=== PATIENT | female | born 1985 | race African-American/Black ===

== ENCOUNTER 2020-03-16 18:40 | Emergency (ER) | payer OTHER ==
[~2020-03-16] VITALS: Ht 172.7 cm; Wt 78.0 kg
[~2020-03-16 18:40] MED LIST: IBUPROFEN 200200 M1 PO; NORCO 5-325 TA1 EACH PO
[2020-03-16] MEDS ORDERED: HUMIRA10 MG/0.1 SUBQ (18:48)
[2020-03-16 19:44] LABS: HEMATOCRIT 31.3 % (37.0-47.0)
[2020-03-16 19:45] LABS: ABSOLUTE NEUTROPHILS 11.3 thou/uL (1.4-8.2); ANION GAP 8 mmol/L (7-16); BASOPHILS 0.6 % (0.0-2.0); BUN 6 mg/dL (7-18); CALCIUM 8.4 mg/dL (8.5-10.1); CHLORIDE 101 mmol/L (98-107); CO2 26 mmol/L (21-32); CREATININE 0.8 mg/dL (0.6-1.0); EOSINOPHILS 0.3 % (0.0-3.0); GLUCOSE 96 mg/dL (74-106); HEMOGLOBIN 10.1 gm/dL (12.0-15.0); LYMPHOCYTES 12.5 % (24.0-44.0); MCH 23.5 pg (26.0-34.0); MCHC 32.3 g/dL (28.0-37.0); MCV 72.9 fL (80.0-100.0); MONOCYTES 6.8 % (1.0-8.0); PLATELET COUNT 330 thou/uL (150-400); POLYS 79.8 % (36.0-66.0); POTASSIUM 3.3 mmol/L (3.5-5.1); RDW 17.2 % (10.5-14.5); SODIUM 135 mmol/L (136-145); WBC 14.1 thou/uL (4.0-11.0)
[2020-03-16 19:53] LABS: TROPONIN-I <0.06 ng/mL (<0.06)
[2020-03-16 20:29] VITALS: BP 130/67
[2020-03-16 21:04] LABS: MICROCYTES 1+
[2020-03-16 21:05] LABS: ANISOCYTOSIS 1+; HYPOCHROMASIA SLIGHT; POLYCHROMASIA OCCASIONAL
--- NOTE | 2020-03-17 07:48 | EKG ---
[facility] [place] [address] ELECTROCARDIOGRAM REPORT Name: SALIMA THEODORE Room #: DEP [facility]#: [id number] Admission: 03/16/20 Attend Phys: Discharge: 03/16/20 Date of : 81 Report #: [id number] THIS REPORT FOR: cc: FAM - No family physician/PCP FAM - No family physician/PCP Curtis Epps MD [facility] THIS REPORT FOR: //name// [facility] ED Test Date: 2020-03-16 Test Time: 19:16:40 Pat Name: SALIMA THEODORE Department: Room: Gender: F Plant Maintenance Engineer: DANIEL : 1985 Requested By: Ray Haddad Order Number: [id number] MD: Curtis Epps Measurements Intervals Hansen Rate: 65 P: 8 GA: 146 QRS: 11 QRSD: 92 T: 19 QT: 395 QTc: 411 Interpretive Statements Sinus rhythm Anteroseptal infarct, old Baseline wander in lead(s) I,II,aVR,aVF No previous ECG available for comparison Electronically Signed On 03-17-2020 7:47:53 CDT by Curtis Epps [email or web address] <ELECTRONICALLY SIGNED> By: Curtis Epps MD, [facility] 03/17/20 0747 15 15 Curtis Epps MD, [facility] /EPI
== END 2020-03-16 20:37 | disposition home or self-care (01) ==
LOC: ER 18:40
PROVIDERS: Emergency Medicine
DX: R00.2 Palpitations (principal); E87.6 Hypokalemia; Z79.899 Other long term (current) drug therapy; Z87.891 Personal history of nicotine dependence

== ENCOUNTER 2020-05-24 06:50 | Emergency (ER) | payer OTHER ==
[~2020-05-24] VITALS: Ht 172.7 cm; Wt 77.1 kg
[~2020-05-24 06:50] MED LIST changes: +HUMIRA10 MG/0.1 SUBQ; +LORCET 5-325 M1 EACH PO
[2020-05-24 08:53] VITALS: BP 112/65
== END 2020-05-24 08:55 | disposition home or self-care (01) ==
LOC: ER 06:50
DX: L73.2 Hidradenitis suppurativa (principal); Z90.49 Acquired absence of other specified parts of digestive tract; Z79.899 Other long term (current) drug therapy; Z88.8 Allergy status to other drugs, medicaments and biological substances

== ENCOUNTER 2021-01-12 14:52 | Observation (INO) | payer OTHER ==
[~2021-01-12] VITALS: Ht 172.7 cm; Wt 69.5 kg
[2021-01-12 15:16] VITALS: BP 119/73
[2021-01-12] MEDS ORDERED: AZULFIDINE500 MG PO (15:24)
[2021-01-12] MEDS ORDERED: FLAGYL500 M1 PO (15:25)
[2021-01-12] MEDS ORDERED: BACTRIM 400-801 EACH PO (15:25)
[2021-01-12 15:33] LABS: HEMATOCRIT 30.6 % (37.0-47.0); HEMOGLOBIN 9.6 gm/dL (12.0-15.0); MCH 21.9 pg (26.0-34.0); MCHC 31.3 g/dL (28.0-37.0); MCV 69.8 fL (80.0-100.0); PLATELET COUNT 559 thou/uL (150-400); RBC 4.38 mil/uL (4.20-5.00); RDW 18.8 % (10.5-14.5); WBC 22.9 thou/uL (4.0-11.0)
[2021-01-12 15:42] LABS: CALCIUM 9.1 mg/dL (8.5-10.1); CREATININE 0.9 mg/dL (0.6-1.0); POTASSIUM 3.6 mmol/L (3.5-5.1)
[2021-01-12 16:09] LABS: ANISOCYTOSIS 2+; POLYCHROMASIA 1+
[2021-01-12 16:10] LABS: HYPOCHROMASIA 2+; MICROCYTES 2+
[2021-01-12 16:13] LABS: ALBUMIN 2.6 g/dL (3.4-5.0); DIRECT BILIRUBIN < 0.1 mg/dL (<0.1-0.2); LIPASE 62 U/L (73-393); SGOT 23 U/L (15-37); SGPT 38 U/L (14-59); TOTAL BILIRUBIN 0.2 mg/dL (0.2-1.0); TOTAL PROTEIN 9.4 g/dL (6.4-8.2)
[2021-01-12 16:36] LABS: URINE BILIRUBIN NEGATIVE (Negative); URINE BLOOD NEGATIVE (Negative); URINE CLARITY CLEAR; URINE COLOR YELLOW; URINE GLUCOSE-RANDOM* NEGATIVE (Negative); URINE KETONES NEGATIVE (Negative); URINE LEUKOCYTES-REFLEX TRACE (Negative); URINE NITRITE-REFLEX NEGATIVE (Negative); URINE PROTEIN (DIPSTICK) NEGATIVE (Negative); URINE SPECIFIC GRAVITY 1.025 (1.005-1.035); URINE UROBILINOGEN 0.2 E.U./dl (0.2-1.0)
[2021-01-12 18:42] VITALS: BP 115/64
[2021-01-12 19:19] VITALS: BP 125/74
[2021-01-12 19:30] VITALS: BP 144/62
[2021-01-13 02:34] VITALS: BP 144/62
--- NOTE | 2021-01-13 03:01 | NUR ---
PT ADMITTED TO ROOM 209 FROM ER, PT IS FROM HOME WITH , ALERT AND ORIENTEDX4, ADMISSION HX, ASSESSMENT AND EDUCATION COMPLETED, PAIN MEDS GIVENX1 WITH RELIEF, SR ON TELE, FLUIDS INFUSING PER MAR, NO NEEDS AT THIS TIME, WILL CONTINUE TO MONITOR AND FOLLOW POC
[2021-01-13 04:00] VITALS: BP 132/64
[2021-01-13 05:20] LABS: HEMATOCRIT 25.5 % (37.0-47.0); HEMOGLOBIN 7.8 gm/dL (12.0-15.0); MCH 22.1 pg (26.0-34.0); MCHC 30.6 g/dL (28.0-37.0); MCV 72.2 fL (80.0-100.0); RBC 3.53 mil/uL (4.20-5.00); RDW 18.9 % (10.5-14.5); WBC 18.7 thou/uL (4.0-11.0)
[2021-01-13 06:01] LABS: CALCIUM 8.4 mg/dL (8.5-10.1); CREATININE 0.7 mg/dL (0.6-1.0); POTASSIUM 3.6 mmol/L (3.5-5.1)
[2021-01-13 08:03] VITALS: BP 120/65
[2021-01-13] MEDS ORDERED: PREDNISONE 20 M20 M1 PO (09:30)
[2021-01-13 10:49] VITALS: BP 120/65
--- NOTE | 2021-01-13 10:59 | NUR ---
Dr. Kumar stated that the discharge prescription had been sent to the pharmacy.
--- NOTE | 2021-01-14 13:38 | HC ---
[facility] [place] [address] CONSULTATION Name: SALIMA MORAES Room #: 209-P [facility] Alecia López#: [id number] Admission: 01/12/21 Attend Phys: Micheal Kumar MD Discharge: 01/13/21 Date of : 81 Report #: [id number] THIS REPORT FOR: cc: Viki Rizo MD, Rebecca MD Althoff,Nitin Lange MD ~ DOC #: [id number] Nitin Benedict MD DATE OF SERVICE: 01/13/2021 CHIEF COMPLAINT: Inguinal region surgical wounds following incision and drainage of hidradenitis suppurativa. HISTORY OF PRESENT ILLNESS: This is a 35-year-old female patient who was admitted through the emergency department last evening with a history of joint pain. She has a history of hidradenitis suppurativa. She has received Humira and then more recently Enbrel. For control of this, she did undergo incision and drainage on the right groin area at [facility] last week and then was started on Cipro. She developed pain in her joints and was admitted here due to severe unrelenting pain. She follows with a executive legal secretary at [facility]. She could not recall that physician's name. PAST MEDICAL HISTORY: Positive history of chronic staph abscesses, hidradenitis suppurativa. PAST SURGICAL HISTORY: Previously cholecystectomy. ALLERGIES: No known drug allergies. MEDICATIONS: Include Humira, sulfasalazine, Bactrim, Flagyl, Lorcet. SOCIAL HISTORY: The patient smokes cigarettes one-half pack per day. No alcohol or drug use. FAMILY HISTORY: Noncontributory. REVIEW OF SYSTEMS: CONSTITUTIONAL: The patient denies fever, chills, weight loss. NEUROLOGICAL: The patient denies focal weakness, numbness or tingling. EYES: The patient denies visual changes, redness or drainage. ENT: The patient denies earache, nasal drainage or sore throat. CARDIOVASCULAR: The patient denies chest pain, palpitations, diaphoresis. PULMONARY: No cough, shortness of breath. GASTROINTESTINAL: The patient denies nausea, vomiting, diarrhea. No pain. GENITOURINARY: The patient does complain of some mild discomfort in the groin area due to the previous surgical incisions. [address] [address] CONSULTATION Name: SALIMA MORAES Room #: 209-[facility] Alecia López#: [id number] Admission: 01/12/21 Attend Phys: Micheal Kumar MD Discharge: 01/13/21 Date of : 81 Report #: [id number] ORTHOPEDIC: The patient complains of generalized joint pain that is somewhat improved since admission. Other systems and a 14-point review of systems are negative. PHYSICAL EXAMINATION: VITAL SIGNS: The patient's vital signs at this time include temperature 36.7, pulse 78, respiration 16, blood pressure 120/65. GENERAL: This is a well-developed, well-nourished female patient who appears to be in no acute distress. HEENT: Head: Normocephalic. Nose and throat are clear. NECK: Supple. LUNGS: Clear. ABDOMEN: Soft. Bowel sounds present. GENITOURINARY: Inguinal region demonstrates surgical incisions to the right groin area that are clean, healthy and granulating. A few small tender areas with small drainage on the left side that were not opened. NEUROLOGIC: The patient is alert and oriented, appropriate. LABORATORY DATA: White blood cell count 18.7, down from 22.9 on admission, hemoglobin of 7.8, hematocrit 25.5. Sodium 139, potassium 3.6, chloride 106, CO2 21, BUN 5, creatinine 0.7, calcium is 8.4. CLINICAL IMPRESSION: 1. Surgical wounds to the right inguinal region following incision and drainage for hidradenitis suppurativa. 2. Chronic hidradenitis suppurativa with multiple Staph aureus abscesses. 3. Joint and muscle pain following use of Cipro. RECOMMENDATIONS: At this point in time, we will recommend silver alginate or nonstick dressing to the right inguinal region covered by a thin ABD pad or similar secondary dressing to be changed daily. Discontinuation of Cipro has already been undertaken. Nutritional support would be appropriate. I appreciate being asked to see her in consultation. Nitin Benedict MD JRA/REMEDIOS <ELECTRONICALLY SIGNED> By: Nitin Benedict MD 01/14/21 1338 1554 0051 Nitin Benedict MD /nt
== END 2021-01-13 11:35 | disposition home or self-care (01) ==
LOC: ER 14:52 → 2N 19:03 → EROBS 19:03 → 2N 19:19
PROVIDERS: Nurse Practitioner; ADMIT Hospitalist; ATTEND Hospitalist
DX: L73.2 Hidradenitis suppurativa (principal); M02.312 Reiter's disease, left shoulder; M02.311 Reiter's disease, right shoulder; M02.362 Reiter's disease, left knee; M02.361 Reiter's disease, right knee; Z79.899 Other long term (current) drug therapy; K59.00 Constipation, unspecified; E03.9 Hypothyroidism, unspecified; Z90.49 Acquired absence of other specified parts of digestive tract; Z87.891 Personal history of nicotine dependence